=== PATIENT | male | born 1965 | race Caucasian/White ===

== ENCOUNTER 2016-11-16 11:12 | Emergency (ER) | payer BC, OTHER ==
--- NOTE | 2016-11-16 11:41 | Emergency Department Record ---
History of Present Illness - General Chief Complaint: Laceration(s) Stated Complaint: LACERATION ON HAND Time Seen by Provider: 11/16/16 11:40 Source: Patient Mode of Arrival: Ambulatory Limitations: No limitations - History of Present Illness Initial Commments: The patient is here due to a R hand laceration which occurred about an hour ago. The patient was working at home and a piece of sharp metal punctured his R hand. The metal piece was large and could not be retained in the wound. He denies any numbness or tingling and his Td is UTD. Onset/Timin -: Minutes(s) Place: Home Context: Accidental Associated Symptoms: None Treatments Prior to Arrival: Bandage - Related Data Hx Tetanus Toxoid Vaccination: Yes Year of Tetanus Vaccination: 2014 Patient Tetanus UTD (within 5 yrs): Yes Previous Rx's Medication Instructions Recorded Cephalexin [Keflex] 500 mg PO QID #20 cap 11/16/16 Allergies Allergy/AdvReac Type Severity Reaction Status Date / Time No Known Drug Allergies Allergy Unverified 11/09/15 19:07 Travel Screening - Travel/Exposure Within Last 30 Days Have you traveled within the last 30 days?: No Past Medical History - SOCIAL HISTORY Smoking Status: Current every day smoker Alcohol Use: None Drug Use: None - RESPIRATORY Hx Respiratory Disorders: No - CARDIOVASCULAR Hx Cardio Disorders: No - NEURO Hx Neuro Disorders: No - GI Hx GI Disorders: No - Hx Genitourinary Disorders: No - ENDOCRINE Hx Endocrine Disorders: No - MUSCULOSKELETAL Hx Musculoskeletal Disorders: No - PSYCH Hx Psych Problems: Yes Hx Anxiety: Yes Hx Depression: Yes - HEMATOLOGY/ONCOLOGY Hx Hematology/Oncology Disorders: No Family Medical History Any Significant Family History?: Yes Hx Diabetes: Father Physical Exam - General General Appearance: Alert, Oriented x3, Cooperative, No acute distress - Head Head exam: Atraumatic, Normocephalic, Normal inspection - Extremities Extremities exam: Full ROM, Normal capillary refill. negative: Normal inspection (There is a 2.5 cm lac to the proximal R middle palm. The R hand is NVI distally with no bony tenderness and no swelling.) Image of Hand: 1 - 2.5 cm lac Course Vital Signs 11/16/16 11:36 Temperature 98.2 F Pulse Rate [ 74 Pulse Ox Probe] Respiratory 20 Rate Blood Pressure 132/94 [Left Arm] Pulse Ox 97 - Reevaluation(s) Reevaluation #1: Procedure note: The R hand lac was prepped with sterile fashion. The wound was cleansed with betadine and lavaged with sterile saline. There was no FB seen and the lac was closed with 4 4.0 nylon sutures. 11/16/16 12:22 Disposition Disposition: Discharge Clinical Impression: Laceration of hand Qualifiers: Encounter type: initial encounter Foreign body presence: without foreign body Laterality: right Qualified Code(s): S61.411A - Laceration without foreign body of right hand, initial encounter Disposition: Home, Self-Care Condition: (1) Good Instructions: Laceration (ED) Additional Instructions: Keep dry for 2 days then no soaking or swimming. Take Tylenol or Motrin for pain and take the Keflex for 5 days. Watch for signs of infection and have the sutures removed in 5 days. Prescriptions: Cephalexin [Keflex] 500 mg PO QID #20 cap Forms: Patient Portal Access Time of Disposition: 12:20
== END 2016-11-16 12:32 | disposition home or self-care (01) ==
LOC: ER 11:12
DX: S61.411A Laceration without foreign body of right hand, initial encounter (principal); W26.8XXA Contact with other sharp object(s), not elsewhere classified, initial encounter; Y92.009 Unspecified place in unspecified non-institutional (private) residence as the place of occurrence of the external cause
CPT/HCPCS: 12001; 99283

== ENCOUNTER 2017-10-19 17:32 | Emergency (ER) | payer BC ==
[2017-10-19] MEDS ORDERED: ONDANSETRON HCL IV 4 MG/2 ML VIAL IVP ONE (17:46)
[2017-10-19] MEDS ORDERED: 0.9 % SODIUM CHLORIDE 1000ML 1,000 ML IV PRN (17:46)
[2017-10-19] MEDS ORDERED: KETOROLAC 30 MG/ML VIAL IVP ONE (17:47)
[2017-10-19] MEDS ORDERED: HYDROMORPHONE HCL 2 MG/ML VIAL IVP ONE ×3 (17:47→21:28)
[2017-10-19] MEDS ORDERED: 0.9 % SODIUM CHLORIDE 1,000 ML BAG IV ONE ×2 (18:35→19:35)
--- NOTE | 2017-10-19 18:40 | Emergency Department Record ---
History of Present Illness - General Chief Complaint: Abdominal Pain Stated Complaint: ABD APIN Time Seen by Provider: 10/19/17 18:27 Source: Patient Mode of Arrival: Ambulatory - History of Present Illness Initial Comments: pt had a sudden onset of severe pain that felt like his previous bouts of diverticulitis. he had gastric bypass 4 yrs ago and has had no problem since then. he has n/v times 1. no c/d. MD Complaint: Abdominal pain Onset/Timin -: Minutes(s) Location: Diffuse Radiation: None Severity: Severe Severity scale (1-10): 10 Quality: Sharp Consistency: Constant Improves With: Nothing Worsens With: Nothing Associated Symptoms: Denies other symptoms - Related Data Home Medications Medication Instructions Recorded Confirmed Last Taken No Home Med [NO HOME MEDS] 10/19/17 10/19/17 Unknown Allergies Allergy/AdvReac Type Severity Reaction Status Date / Time IV CONTRAST Allergy HIVES Uncoded 10/19/17 20:30 Travel Screening - Travel/Exposure Within Last 30 Days Have you traveled within the last 30 days?: No Review of Systems Reviewed: No additional complaints except as noted below Constitutional: Reports: As per HPI. Denies: Chills, Fever, Malaise, Night sweats, Weakness, Weight change Eyes: Reports: As per HPI. Denies: Eye discharge, Eye pain, Photophobia, Vision change ENT: Reports: As per HPI. Denies: Congestion, Dental pain, Ear pain, Epistaxis , Hearing loss, Throat pain Respiratory: Reports: As per HPI. Denies: Cough, Dyspnea, Hemoptysis, Stridor, Wheezes Cardiovascular: Reports: As per HPI. Denies: Arrhythmia, Chest pain, Dyspnea on exertion, Edema, Murmurs, Orthopnea, Palpitations, Paroxysmal nocturnal dyspnea, Rheumatic Fever, Syncope Endocrine: Reports: As per HPI. Denies: Fatigue, Heat or cold intolerance, Polydipsia, Polyuria Gastrointestinal: Reports: As per HPI, Abdominal pain, Nausea, Vomiting. Denies : Constipation, Diarrhea, Hematemesis, Hematochezia, Melena Genitourinary: Reports: As per HPI. Denies: Dysuria, Frequency, Hematuria, Incontinence, Retention, Testicular pain, Testicular mass, Urgency Musculoskeletal: Reports: As per HPI. Denies: Arthralgia, Back pain, Gout, Joint swelling, Myalgia, Neck pain Skin: Reports: As per HPI. Denies: Bruising, Change in color, Change in hair/ nails, Lesions, Pruritus, Rash Neurological: Reports: As per HPI. Denies: Abnormal gait, Confusion, Headache, Numbness, Paresthesias, Seizure, Tingling, Tremors, Vertigo, Weakness Psychiatric: Reports: As per HPI. Denies: Anxiety, Auditory hallucinations, Depression, Homicidal thoughts, Suicidal thoughts, Visual hallucinations Hematological/Lymphatic: Reports: As per HPI. Denies: Anemia, Blood Clots, Easy bleeding, Easy bruising, Swollen glands Past Medical History - SOCIAL HISTORY Smoking Status: Current every day smoker Alcohol Use: Occasional - RESPIRATORY Hx Respiratory Disorders: No - CARDIOVASCULAR Hx Cardio Disorders: No - NEURO Hx Neuro Disorders: No - GI Hx GI Disorders: Yes Hx Diverticulitis: Yes - Hx Genitourinary Disorders: No - ENDOCRINE Hx Endocrine Disorders: No - MUSCULOSKELETAL Hx Musculoskeletal Disorders: No - PSYCH Hx Psych Problems: Yes Hx Anxiety: Yes Hx Depression: Yes - HEMATOLOGY/ONCOLOGY Hx Hematology/Oncology Disorders: No Family Medical History Any Significant Family History?: Yes Hx Diabetes: Father Physical Exam - General General Appearance: Alert, Oriented x3, Cooperative, Moderate distress - Head Head exam: Normal inspection - Eye Eye exam: Normal appearance, PERRL, EOMI Pupils: Normal accommodation - ENT ENT exam: Normal exam, Mucous membranes moist, Normal external ear exam, Normal orophraynx Ear exam: Normal external inspection. negative: External canal tenderness Nasal Exam: Normal inspection. negative: Discharge, Sinus tenderness Mouth exam: Normal external inspection, Tongue normal Teeth exam: Normal inspection. negative: Dental caries Throat exam: Normal inspection. negative: Tonsillar erythema, Tonsillar exudate - Neck Neck exam: Normal inspection, Full ROM. negative: Tenderness - Respiratory Respiratory exam: Normal lung sounds bilaterally. negative: Respiratory distress - Cardiovascular Cardiovascular Exam: Regular rate, Normal rhythm, Normal heart sounds - GI/Abdominal GI/Abdominal exam: Soft, Normal bowel sounds, Tenderness - Rectal Rectal exam: Deferred - exam: Deferred - Extremities Extremities exam: Normal inspection, Full ROM, Normal capillary refill. negative: Tenderness - Back Back exam: Reports: Normal inspection, Full ROM. Denies: Muscle spasm, Rash noted, Tenderness - Neurological Neurological exam: Alert, CN II-XII intact, Normal gait, Oriented X3 - Psychiatric Psychiatric exam: Normal affect, Normal mood - Skin Skin exam: Dry, Intact, Normal color, Warm Course Vital Signs 10/19/17 17:35 Temperature 98.6 F Pulse Rate 24 L Respiratory 24 Rate Blood Pressure 141/104 Pulse Ox 100 - Reevaluation(s) Reevaluation #1: 10/19/17 22:57 pt feels better 10/19/17 22:58 pt started passing gas and felt better Medical Decision Making - Lab Data Result diagrams: 10/19/17 18:43 10/19/17 18:43 Disposition Disposition: Discharge Clinical Impression: Ileus Disposition: Home, Self-Care Condition: (1) Good Instructions: Ileus (ED) Additional Instructions: follow up with family doctor. return sooner if worse Forms: Patient Portal Access Quality - Quality Measures Quality Measures: N/A - Blood Pressure Screening Does Patient Have Any of the Following: No Blood Pressure Classification: Hypertensive Reading Systolic Measurement: 141 Diastolic Measurement: 104 Screening for High Blood Pressure: < First Hypertensive BP, F/U Documented > [ G8950] First Hypertensive Follow-up Interventions: Follow-up with rescreen GT 1 day and LT 4 weeks.
[2017-10-19 18:45] LABS: BASO % 0.2 % (0-6); EOS % 0.4 % (0-6); GRAN % 78.2 % (47-80); HEMATOCRIT 42.1 % (42.0-52.0); HEMOGLOBIN 14.5 gm/dl (14.0-18.0); LYMPH % 12.3 % (16-45); MEAN CELL VOLUME 97.9 fl (81-97); MEAN CORPUSCULAR HEMOGLOBIN 33.7 pg (27-33); MEAN CORPUSCULAR HGB CONC 34.4 g/dl (32-36); MEAN PLATELET VOLUME 9.8 fl (7.4-10.4); MONO % 8.9 % (0-9); PLATELET COUNT 227 K/uL (130-400); RED CELL DISTRIBUTION WIDTH 13.4 % (11.5-14.5); WHITE BLOOD COUNT W/O DIFF 13.3 K/uL (4.2-12.2)
[2017-10-19 18:46] LABS: URINE APPEARANCE CLEAR; URINE BILIRUBIN NEGATIVE (NEGATIVE); URINE BLOOD NEGATIVE (NEGATIVE); URINE COLOR YELLOW; URINE KETONE NEGATIVE (NEGATIVE); URINE LEUKOCYTE ESTERASE NEGATIVE (NEGATIVE); URINE NITRITE NEGATIVE (NEGATIVE); URINE PROTEIN NEGATIVE (NEGATIVE); URINE UROBILINOGEN 0.2 E.U./dL (0.20 - 1.00)
[2017-10-19 19:32] LABS: BLOOD UREA NITROGEN 20 mg/dL (6-20); CREATININE 0.9 mg/dL (0.7-1.2); EST GLOMERULAR FILTRATION RATE > 60 mL/min
[2017-10-19 19:34] LABS: GLUCOSE,RANDOM 95 mg/dL (74-109)
[2017-10-19 19:37] LABS: ALBUMIN 4.6 g/dL (4.0-5.0); ALKALINE PHOSPHATASE 68 U/L (40-129); ALT/SGPT 18 U/L (<41); AST/SGOT 27 U/L (10.0-50.0); LIPASE 120 U/L (13-60)
[2017-10-19 19:38] LABS: BILIRUBIN,DIRECT < 0.2 mg/dL (0-0.3)
--- NOTE | 2017-10-21 07:32 | CT SCAN REPORT ---
EXAM: CT OF THE ABDOMEN AND PELVIS WITHOUT CONTRAST HISTORY: STABBING LOWER ABDOMINAL PAIN FOR ONE HOUR. PRIOR GASTRIC BYPASS. TECHNIQUE: Following oral contrast administration, helical CT examination of the abdomen and pelvis was performed without intravenous contrast. Intravenous contrast was not utilized due to known contrast allergy. Comparison: CT of the abdomen and pelvis with contrast dated 05/20/12. FINDINGS: There is mild dependent atelectasis in each lung base. No pleural or pericardial effusion. The heart is not enlarged. No new suspicious focal abnormality demonstrated within the liver, spleen, pancreas, adrenal glands, nor kidneys. No obstructive uropathy. The gallbladder is unremarkable and no biliary ductal dilatation is seen. No new intraabdominal nor retroperitoneal lymphadenopathy. There is minor atherosclerosis without aneurysmal dilatation of the abdominal aorta nor iliac arteries. No pelvic mass, lymphadenopathy, or free pelvic fluid. No intrinsic urinary bladder abnormality. There are changes of Aleah-En-Y type gastric bypass. The Aleah limb appears widely patent with the distal anastomosis visualized and appearing patent. An occasional diverticulum is noted in a segment of small bowel in the left mid to upper abdomen. There are multiple loops of borderline to mildly dilated proximal to mid small bowel with short air fluid levels present. No definite sharp zone of transition is seen though there are loops of distal small bowel that are relatively normal in caliber, but with solid stool present. This may relate to stasis. The appendix is visualized and normal in appearance. There is diverticulosis of the left colon most pronounced in the sigmoid region where it is moderate in degree. No definite evidence of diverticulitis. No free intraperitoneal air. No lytic or blastic bone lesion. Mild degenerative changes scattered throughout the visualized spine. IMPRESSION: 1. STATUS POST ALEAH-EN-Y GASTRIC BYPASS. 2. MULTIPLE LOOPS OF MILDLY DILATED PROXIMAL TO MID SMALL BOWEL WITH SHORT AIR FLUID LEVELS PRESENT. NO DEFINITE SHARP ZONE OF TRANSITION IS SEEN THOUGH THE TERMINAL ILEUM IS RELATIVELY NORMAL IN CALIBER, BUT CONTAINS SOLID STOOL. THESE FINDINGS MAY RELATE TO PARALYTIC ILEUS/STASIS THOUGH A COMPONENT OF PARTIAL SMALL BOWEL OBSTRUCTION CANNOT BE EXCLUDED. NO ASSOCIATED WALL THICKENING OR EXTRALUMINAL AIR. 3. NORMAL APPENDIX. 4. DIVERTICULOSIS OF THE LEFT COLON WITHOUT EVIDENCE OF DIVERTICULITIS. 5. MINOR DEPENDENT ATELECTASIS IN EACH LUNG BASE. JOB NUMBER: [id number] [facility]
== END 2017-10-19 23:26 | disposition home or self-care (01) ==
LOC: ER 17:32
DX: K56.7 Ileus, unspecified (principal); R11.2 Nausea with vomiting, unspecified; F17.210 Nicotine dependence, cigarettes, uncomplicated; Z98.84 Bariatric surgery status
CPT/HCPCS: 99284 ×2; 96376; 96374; 96375; 83605; 83690; 85025; 80076; 80048; 81003; 74176; J1885; J2405; J1170; 74177; J7030

== ENCOUNTER 2018-01-24 22:35 | Emergency (ER) | payer BC ==
--- NOTE | 2018-01-24 22:58 | Emergency Department Record ---
History of Present Illness - General Chief Complaint: Laceration(s) Stated Complaint: ;LACERATION ON HEAD Time Seen by Provider: 01/24/18 22:41 Source: Patient Mode of Arrival: Ambulatory Limitations: No limitations - History of Present Illness Initial Commments: 52 yo male presents to ED for evaluation following a trip and fall resulting in head laceration. Patient denies LOC, but admits to drinking alcohol. Patient denies health problems at his baseline and does not take anticoagulation medications. Patient denies neck pain, numbness, tingling, or extremity weakness symptoms. Patient denies other injury on examination. Patient reports that his tetanus status is UTD. Onset/Timin -: Minutes(s) Place: Home Context: Accidental, Fall Associated Symptoms: None Treatments Prior to Arrival: Bandage - Juan J Coma Scale Eye Response: (4) Open spontaneously Motor Response: (6) Obeys commands Verbal Response: (5) Oriented Juan J Total: 15 - Related Data Hx Tetanus Toxoid Vaccination: Yes Year of Tetanus Vaccination: 2014 Patient Tetanus UTD (within 5 yrs): Yes Previous Rx's Medication Instructions Recorded Cephalexin [Keflex] 500 mg PO QID #39 cap 01/25/18 Allergies Allergy/AdvReac Type Severity Reaction Status Date / Time IV CONTRAST Allergy HIVES Uncoded 10/19/17 20:30 Travel Screening - Travel/Exposure Within Last 30 Days Have you traveled within the last 30 days?: No - Travel Symptoms Symptom Screening: Fever (Subjective) Review of Systems Constitutional: Denies: Chills, Fever, Malaise, Night sweats Eyes: Denies: Eye discharge, Eye pain ENT: Denies: Congestion, Ear pain, Epistaxis Respiratory: Denies: Cough, Dyspnea Cardiovascular: Denies: Chest pain, Dyspnea on exertion Endocrine: Denies: Fatigue, Heat or cold intolerance Gastrointestinal: Denies: Abdominal pain, Nausea, Vomiting Genitourinary: Denies: Incontinence, Retention Musculoskeletal: Denies: Arthralgia, Back pain, Gout, Joint swelling Skin: Reports: Other (Large scalp/forehead laceration). Denies: Bruising, Change in color Neurological: Reports: Headache. Denies: Abnormal gait, Confusion, Seizure Psychiatric: Denies: Anxiety Hematological/Lymphatic: Denies: Anemia, Blood Clots Past Medical History - SOCIAL HISTORY Smoking Status: Current every day smoker Alcohol Use: Heavy Drug Use: None - RESPIRATORY Hx Respiratory Disorders: No - CARDIOVASCULAR Hx Cardio Disorders: No - NEURO Hx Neuro Disorders: No - GI Hx GI Disorders: Yes Hx Diverticulitis: Yes - Hx Genitourinary Disorders: No - ENDOCRINE Hx Endocrine Disorders: No - MUSCULOSKELETAL Hx Musculoskeletal Disorders: No - PSYCH Hx Psych Problems: Yes Hx Anxiety: Yes Hx Depression: Yes - HEMATOLOGY/ONCOLOGY Hx Hematology/Oncology Disorders: No Family Medical History Any Significant Family History?: Yes Hx Diabetes: Father Physical Exam - General General Appearance: Alert, Oriented x3, Cooperative, Mild distress, Other ( Clinically intoxicated) Limitations: No limitations - Head Head exam detail: Laceration (8.5-9.0 cm curvilinear scalp laceration on examination. Other smaller superfical lacerations present to the left maxillary region). negative: Abrasion, Contusion, Marinelli's sign, General tenderness, Hematoma - Eye Eye exam: Normal appearance. negative: Conjunctival injection, Periorbital swelling, Periorbital tenderness, Scleral icterus - ENT Ear exam: negative: Auricular hematoma, Auricular trauma Nasal Exam: negative: Active bleeding, Discharge, Dried blood, Foreign body Mouth exam: negative: Drooling, Laceration, Muffled voice, Tongue elevation - Neck Neck exam: Normal inspection. negative: Meningismus, Tenderness - Respiratory Respiratory exam: Normal lung sounds bilaterally. negative: Rales, Respiratory distress, Rhonchi, Stridor - Cardiovascular Cardiovascular Exam: Regular rate, Normal rhythm, Normal heart sounds - GI/Abdominal GI/Abdominal exam: Soft. negative: Rebound, Rigid, Tenderness - Rectal Rectal exam: Deferred - exam: Deferred - Extremities Extremities exam: Normal inspection. negative: Calf tenderness, Pedal edema, Tenderness - Back Back exam: Denies: CVA tenderness (R), CVA tenderness (L) - Neurological Neurological exam: Alert, Normal gait, Oriented X3 - Psychiatric Psychiatric exam: Normal affect, Normal mood - Skin Skin exam: Normal color. negative: Abrasion Type of lesion: negative: abrasion Course Vital Signs 01/24/18 22:38 Temperature 97.9 F Pulse Rate 63 Respiratory 20 Rate Blood Pressure 156/101 Pulse Ox 100 - Reevaluation(s) Reevaluation #1: 01/24/18 22:57 Procedure Note 9.0 cm curvilinear laceration to the anterior scalp and forehead, bleeding controlled. Wound was cleaned and prepped in sterile fashion, no residual FB identified on examination. Wound was irrigated extensively with 250 mL jet irrigation as well. Wound was anesthetized with 5.0 mL of 1% Lidocaine with epinephrine with good anesthesia, and the laceration was repaired with 5-0 Prolene (#22) sutures in interrupted fashion. Patient tolerated the procedure well without complications. Procedure Note: Small wooden splinter was removed from a separate superficial laceration just superior and lateral to the left eyebrow as well, bleeding controlled. Reevaluation #2: 01/24/18 23:44 CT Brain: No acute intra-cranial process. CT Cervical Spine: No acute fracture. 01/24/18 23:54 Disposition Disposition: Discharge Clinical Impression: Scalp laceration Qualifiers: Encounter type: initial encounter Qualified Code(s): S01.01XA - Laceration without foreign body of scalp, initial encounter Foreign body of scalp Qualifiers: Encounter type: initial encounter Qualified Code(s): S00.05XA - Superficial foreign body of scalp, initial encounter Disposition: Home, Self-Care Condition: (2) Stable Instructions: Laceration (ED) Additional Instructions: Return to ED if your symptoms worsen or if you have any concerns. Keflex as directed. Follow-up with your family doctor in 3-5 days as directed. Prescriptions: Cephalexin [Keflex] 500 mg PO QID #39 cap Forms: Patient Portal Access Time of Disposition: 00:01 Quality - Quality Measures Quality Measures: N/A - Blood Pressure Screening Does Patient Have Any of the Following: No Blood Pressure Classification: Hypertensive Reading Systolic Measurement: 156 Diastolic Measurement: 101 Screening for High Blood Pressure: < First Hypertensive BP, F/U Documented > [ G8950] First Hypertensive Follow-up Interventions: Referral to alternative/primary care provider.
[2018-01-24] MEDS ORDERED: CEPHALEXIN 500 MG CAPSULE PO STA (23:43)
--- NOTE | 2018-01-27 13:36 | CT SCAN REPORT ---
EXAM: HEAD CT HISTORY: PATIENT FELL WITH HEAD INJURY. TECHNIQUE: Axial CT scan of the head was performed without IV contrast. A preliminary report was provided by [facility]. Comparison: None. Encounter: Initial. FINDINGS: No definite acute intracranial hemorrhage identified. No focal mass effect or midline shift apparent. No definite acute infarct or intracranial mass lesion seen. Mild soft tissue swelling in the scalp overlying the left frontal region with an apparent laceration in the scalp as well with introduction of some air in the soft tissues. No definite underlying calvarial fracture identified. IMPRESSION: 1. NO ACUTE INTRACRANIAL HEMORRHAGE OR FOCAL MASS EFFECT EVIDENT. 2. APPARENT SCALP LACERATION IN THE LEFT FRONTAL REGION. JOB NUMBER: [id number] [facility]
--- NOTE | 2018-01-27 13:43 | CT SCAN REPORT ---
EXAM: EMERGENCY CT SCAN OF THE ENTIRE CERVICAL SPINE HISTORY: PATIENT FELL WITH HEAD LACERATION. TECHNIQUE: Axial CT scan of the entire cervical spine was performed without IV contrast. A preliminary report was provided by [facility]. Comparison: None. Encounter: Initial. FINDINGS: No apical pneumothorax is evident. No definite fracture of the cervical spine identified and no prevertebral soft tissue swelling evident. Mild narrowing of the C6-C7 interspace likely representing some degenerative disk disease with some associated hypertrophic spurring. Degenerative change at the odontoid-anterior arch of C1 articulation as well. Some mild facet joint arthropathy particularly at the right C2-C3 facet articulation. There is questionably a nodule in the upper pole of the right lobe of the thyroid measuring about 8 mm in size. Correlation with physical exam is suggested and follow-up nonemergent thyroid ultrasound may be useful. IMPRESSION: 1. NO DEFINITE FRACTURE OR PREVERTEBRAL SOFT TISSUE SWELLING SEEN IN THE CERVICAL SPINE. 2. MULTILEVEL DEGENERATIVE CHANGE IN THE CERVICAL SPINE. 3. QUESTIONABLE 8 MM NODULE UPPER POLE RIGHT LOBE OF THE THYROID. 4. REPORT OF THIS WAS DISCUSSED BY MYSELF WITH DR. AVELAR OF THE EMERGENCY DEPARTMENT AT THE TIME OF DICTATION AT APPROXIMATELY 6:58 A.M. ON 01/25/18 AT PHONE NUMBER . JOB NUMBER: [id number] [facility]
== END 2018-01-25 00:08 | disposition home or self-care (01) ==
LOC: ER 22:35
DX: S01.01XA Laceration without foreign body of scalp, initial encounter (principal); S00.85XA Superficial foreign body of other part of head, initial encounter; W01.10XA Fall on same level from slipping, tripping and stumbling with subsequent striking against unspecified object, initial encounter; F17.210 Nicotine dependence, cigarettes, uncomplicated; Y92.007 Garden or yard of unspecified non-institutional (private) residence as the place of occurrence of the external cause
CPT/HCPCS: 12034; 70450; 72125; 99284

== ENCOUNTER 2019-06-18 20:25 | Emergency (ER) | payer BC ==
[2019-06-18] MEDS ORDERED: MORPHINE SULFATE 5 MG/ML VIAL IVP ONE (20:35)
[2019-06-18] MEDS ORDERED: ONDANSETRON HCL IV 4 MG/2 ML VIAL IVP ONE (20:35)
[2019-06-18] MEDS ORDERED: 0.9 % SODIUM CHLORIDE 1,000 ML BAG IV ONE ×2 (20:35→22:24)
--- NOTE | 2019-06-18 20:47 | Emergency Department Record ---
History of Present Illness - General Chief Complaint: Abdominal Pain Stated Complaint: ABD PAIN Time Seen by Provider: 06/18/19 20:27 Source: Patient Mode of Arrival: Ambulatory Limitations: No limitations - History of Present Illness Initial Comments: The patient is here due to the acute onset of abdominal pain a half hour prior to presenting to the ER. He states the pain is in the mid abdomen and feels like a sharp stabbing pain. He denies any CP, SOB, GLENDA, sweating, or back pain. The patient does have a hx of Diverticulitis and Gastric Bypass. MD Complaint: Abdominal pain Onset/Timin -: Minutes(s) Location: RLQ Radiation: None Migration to: No migration Severity: Severe Severity scale (1-10): >10 Consistency: Constant Improves With: Nothing Worsens With: Nothing Associated Symptoms: Vomiting - Related Data Home Medications Medication Instructions Recorded Confirmed Last Taken No Home Med [NO HOME MEDS] 06/18/19 06/18/19 Unknown Allergies Allergy/AdvReac Type Severity Reaction Status Date / Time IV CONTRAST Allergy HIVES Uncoded 10/19/17 20:30 Travel Screening - Travel/Exposure Within Last 30 Days Have you traveled within the last 30 days?: No - Travel/Exposure Within Last Year Have you traveled outside the [place] in the last year?: No - Additonal Travel Details Have you been exposed to anyone with a communicable illness?: No - Travel Symptoms Symptom Screening: None Review of Systems Constitutional: Denies: Chills, Fever Eyes: Denies: Eye discharge ENT: Denies: Congestion Respiratory: Denies: Cough, Dyspnea Cardiovascular: Denies: Arrhythmia, Chest pain Endocrine: Denies: Fatigue Gastrointestinal: Reports: Nausea, Vomiting. Denies: Diarrhea Genitourinary: Denies: Dysuria Musculoskeletal: Denies: Arthralgia Skin: Denies: Bruising Past Medical History - SOCIAL HISTORY Smoking Status: Current every day smoker Alcohol Use: Heavy Alcohol Use Comment: 6- 12 pack daily Drug Use: Occasional Drug Use Detail:: Marijuana - RESPIRATORY Hx Respiratory Disorders: No - CARDIOVASCULAR Hx Cardio Disorders: No - NEURO Hx Neuro Disorders: No - GI Hx GI Disorders: Yes Hx Diverticulitis: Yes - Hx Genitourinary Disorders: No - ENDOCRINE Hx Endocrine Disorders: No - MUSCULOSKELETAL Hx Musculoskeletal Disorders: No - PSYCH Hx Psych Problems: No - HEMATOLOGY/ONCOLOGY Hx Hematology/Oncology Disorders: No Family Medical History Any Significant Family History?: No Hx Diabetes: Father Physical Exam - General General Appearance: Alert, Oriented x3, Moderate distress (The patient is presently writhing in pain and stating his abdomen is feeling like it is exploding.) - Head Head exam: Atraumatic, Normocephalic - Eye Eye exam: Normal appearance, PERRL - ENT Throat exam: Normal inspection. negative: Tonsillar erythema, Tonsillar exudate - Neck Neck exam: Normal inspection, Full ROM. negative: Tenderness - Respiratory Respiratory exam: Normal lung sounds bilaterally. negative: Respiratory distress - Cardiovascular Cardiovascular Exam: Regular rate, Normal rhythm, Normal heart sounds - GI/Abdominal GI/Abdominal exam: Soft, Guarding, Hypoactive bowel sounds, Tenderness (There is significant diffuse mid abdominal tenderness.). negative: Distended, Organomegaly, Pulsatile mass, Rebound, Rigid - Extremities Extremities exam: Normal inspection, Full ROM, Normal capillary refill. negative: Tenderness - Back Back exam: Reports: Normal inspection. Denies: Vertebral tenderness - Neurological Neurological exam: Alert. negative: Altered, Motor sensory deficit - Psychiatric Psychiatric exam: Agitated, Anxious Course - Reevaluation(s) Reevaluation #1: The patient is doing a lot better at this time. His pain is much improved and he is resting comfortably. I did discuss the need to obtain an abdominal CT with oral and IV contrast due to the hx of gastric bypass. The patient does have a remote hx of allergy to IV contrast many years ago and states it was minor and he did not need to come to the ER. He believes he only had a mild rash. I did discuss the need for the contrast and the small but possible chance he could have an allergix rxn. The patient and understand and accept the risks. We did pretreat the patient with Benadryl and Solumedrol. 06/18/19 21:22 Reevaluation #2: The patient is doing a lot better at this time. His pain is much better at this time and he is resting comfortably. He is drinking the contrast for the abdominal CT. 06/18/19 22:39 Reevaluation #3: The patient is doing better but still having some mild pain and tenderness. I did discuss the fact that the lactic acid redraw test is still mildly abnormal and did not return to normal after the IV fluid. Due to the fact the patient is still having some pain and tenderness I did recommend a short stay admission for monitoring and repeat lab work at 6am. The patient is now refusing that plan and would like to go home. I did explain the fact that I felt going home would be dangerous due to the fact I am not sure exactly what is causing his pain and the symptoms could return which could lead to worsening pain, ischemic bowel, sepsis, disability and even . The patient has had some narcotics with the last dose about 3 hours ago but presently appears to have proper decision making capacity. His also agrees and feels the patient is acting normally and does understand the risks of leaving and does accept and understand the risks. The patient is to be discharged AMA and will return if the symptoms return. He understands we cannot be held liable for NOT admitting and further evaluating his condition. 06/19/19 00:25 Reevaluation #4: 2nd EKG: NSR at 69, neg ST-T changes. 06/19/19 00:30 Medical Decision Making - Data Complexity MDM Data: Labs Ordered and/or Reviewed, X-Ray Ordered and/or Reviewed, EKG Ordered and/or Reviewed - Lab Data Result diagrams: 06/18/19 20:30 06/18/19 20:30 - EKG Data -: EKG Interpreted by Me EKG: No Acute Changes, Normal EKG - Radiology Data Radiology results: Report reviewed (CT: Neg for any acute issues.) Disposition Disposition: Discharge Clinical Impression: Abdominal pain Qualifiers: Abdominal location: generalized Qualified Code(s): R10.84 - Generalized abdo isabella pain Disposition: Against Medical Advice Condition: (2) Stable Instructions: Abdominal Pain (ED) Additional Instructions: Please eat a very bland diet and drink plenty of fluids. Please see your doctor АННА for recheck and please return to the ER for any worsening symptoms or any return of the pain. Forms: Patient Portal Access Time of Disposition: 00:37 Quality - Quality Measures Quality Measures: N/A - Blood Pressure Screening View Details: Yes Does Patient Have Any of the Following: No Blood Pressure Classification: Pre-Hypertensive BP Reading Systolic Measurement: 115 Diastolic Measurement: 85 Screening for High Blood Pressure: < Pre-Hypertensive BP, F/U Documented > [G8950] Pre-Hypertensive Follow-up Interventions: Referral to alternative/primary care provider.
[2019-06-18] MEDS ORDERED: HYDROMORPHONE HCL 2 MG/ML VIAL IVP ONE (20:49)
[2019-06-18] MEDS ORDERED: DIPHENHYDRAMINE HCL 50 MG/ML VIAL IVP ONE (20:51)
[2019-06-18] MEDS ORDERED: METHYLPREDNISOLONE PF 125MG/VIAL IVP ONE (20:52)
[2019-06-18 20:59] LABS: ABSOLUTE NEUTROPHIL COUNT 4.02; BASO % 0.5 % (0-6); EOS % 3.9 % (0-6); GRAN % 50.1 % (47-80); HEMATOCRIT 38.6 % (42.0-52.0); HEMOGLOBIN 13.4 gm/dl (14.0-18.0); LYMPH % 35.9 % (16-45); MEAN CELL VOLUME 98.5 fl (81-97); MEAN CORPUSCULAR HGB CONC 34.7 g/dl (32-36); MONO % 9.6 % (0-9); PLATELET COUNT 240 K/uL (130-400); RED BLOOD COUNT 3.92 M/uL (4.40-5.70); RED CELL DISTRIBUTION WIDTH 12.8 % (11.5-14.5)
[2019-06-18 21:01] LABS: MEAN CORPUSCULAR HEMOGLOBIN 34.1 pg (27-33)
[2019-06-18 21:11] LABS: BLOOD UREA NITROGEN 19 mg/dL (6-20); EST GLOMERULAR FILTRATION RATE > 60 mL/min
[2019-06-18 21:12] LABS: LIPASE 38 U/L (13-60); TOTAL PROTEIN 6.5 g/dL (6.6-8.7)
[2019-06-18 21:14] LABS: GLUCOSE,RANDOM 92 mg/dL (74-109); LACTIC ACID 2.7 mmol/L (0.5-2.2)
[2019-06-18 21:16] LABS: ALT/SGPT 17 U/L (<41)
[2019-06-18 21:17] LABS: ALBUMIN 4.4 g/dL (4.0-5.0); ALKALINE PHOSPHATASE 70 U/L (40-129); AST/SGOT 30 U/L (10.0-50.0); BILIRUBIN,DIRECT < 0.2 mg/dL (0-0.3); C-REACTIVE PROTEIN 0.07 mg/dL (<0.5)
[2019-06-18 23:12] LABS: URINE APPEARANCE CLEAR; URINE BILIRUBIN NEGATIVE (NEGATIVE); URINE BLOOD NEGATIVE (NEGATIVE); URINE COLOR YELLOW; URINE GLUCOSE (UA) NEGATIVE (NEGATIVE); URINE KETONE NEGATIVE (NEGATIVE); URINE LEUKOCYTE ESTERASE NEGATIVE (NEGATIVE); URINE NITRITE NEGATIVE (NEGATIVE); URINE PROTEIN NEGATIVE (NEGATIVE); URINE UROBILINOGEN 0.2 E.U./dL (0.20 - 1.00)
--- NOTE | 2019-06-18 23:34 | CT SCAN REPORT ---
EXAMINATION: CT Abdomen and Pelvis with IV Contrast EXAM DATE: 06/18/2019 11:24 PM TECHNIQUE: CT imaging of the abdomen and pelvis was performed with intravenous contrast. Coronal and sagittal images were reconstructed. IV Contrast: The amount and type of contrast are recorded in the medical record. INDICATION: Lower abdominal pain acute, history of gastric bypass COMPARISON: Abdomen pelvis CT 10/19/2017 ENCOUNTER: Not applicable CT ABDOMEN AND PELVIS FINDINGS: Lung Bases: Mild dependent atelectasis at the lung bases. Hepatobiliary: The liver has a normal size with a smooth surface. The hepatic and portal veins appear patent. Mildly distended gallbladder with no wall thickening or adjacent inflammation. Pancreas: The pancreas is normal. Spleen: The spleen is not enlarged. Adrenals: The adrenal glands are normal. Kidneys, Ureters, & Bladder: Both kidneys have a normal size and there is no hydronephrosis. Both ur eters have a normal caliber and the urinary bladder is unremarkable. Gastrointestinal: Status post Aleah-en-Y gastric bypass. Small bowel is of normal caliber. Particulate material in the distal small bowel which is mildly dilated measuring up to 2.9 cm. This is similar t o the prior study. Normal appendix. Small amount of fecal material throughout the colon. Moderate si gmoid colon diverticulosis without diverticulitis. Reproductive Organs: Unremarkable Lymphatic System: There is no adenopathy within the abdomen or pelvis. Vasculature: Normal caliber abdominal aorta. Peritoneum: No free fluid, free air, or inflammation Abdominal Wall & Musculoskeletal: No suspicious bone lesions. IMPRESSION: 1. No change from prior study. Status post Aleah-en-Y gastric bypass. Moderately prominent distal smal l bowel with particulate material. Suspect slow small bowel transit. No acute inflammatory process of the abdomen or pelvis. 2. Moderate sigmoid colon diverticulosis without diverticulitis. Dictated by: Marcelino Yusuf MD on 06/18/2019 11:27 PM. .
== END 2019-06-19 00:42 | disposition left against medical advice (07) ==
LOC: ER 20:25
DX: R10.84 Generalized abdominal pain (principal); R11.2 Nausea with vomiting, unspecified; F17.210 Nicotine dependence, cigarettes, uncomplicated; Z98.84 Bariatric surgery status
CPT/HCPCS: 74177; 80048; 80076; 81003; 83605; 83690; 84484; 85025; 86140; 93005; 93010; 96374; 96375; 99284; J1200; J2405; J2930; J7030